=== PATIENT | female | born 1945 | race Caucasian/White ===

== ENCOUNTER 2018-12-19 11:07 | Inpatient (IN) | payer MEDICARE ==
--- NOTE | 2018-12-19 12:01 | ED ---
Fall HPI - General Chief Complaint: Fall Stated Complaint: Fall, leg pain Time Seen by Provider: 12/19/18 11:12 Source: patient Mode of arrival: wheelchair - History of Present Illness Initial Comments: 73-year-old female presenting today for chief complaint of left leg pain. Patient states that she fell when sitting on a chair reaching for an object on Friday of this week. She states she wasn't able to walk on the leg, she states she felt it was getting better. When she still wasn't able to walk today she presented for evaluation. Pt denies use of blood thinners, denies head neck or back injury. Patient states she does have pain in the leg when she attempts to walk she states it feels much. Otherwise remaining review of systems negative patient denies any other area of injury or pain. Patient appears well signs of acute distress. Pt is not able to weight bear on arrival. - Related Data Allergies Allergy/AdvReac Type Severity Reaction Status Date / Time No Known Allergies Allergy Verified 12/19/18 11:15 Review of Systems ROS Statement: Those systems with pertinent positive or pertinent negative responses have been documented in the HPI. ROS Other: All systems not noted in ROS Statement are negative. Past Medical History Past Medical History: Hypertension History of Any Multi-Drug Resistant Organisms: None Reported Past Surgical History: Appendectomy, Section Past Psychological History: No Psychological Hx Reported Smoking Status: Never smoker Past Alcohol Use History: None Reported Past Drug Use History: None Reported General Exam - General Exam Comments Initial Comments: General: The patient is awake and alert, in no distress, and does not appear acutely ill. Eye: +3 mm pupils are equal, round and reactive to light, extra-ocular m ovements are intact. No nystagmus. There is normal conjunctiva bilaterally. No signs of icterus. Ears, nose, mouth and throat: There are moist mucous membranes and no oral lesions. Neck: The neck is supple, there is no tenderness or JVD. Cardiovascular: There is a regular rate and rhythm. No murmur, rub or gallop is appreciated. Respiratory: Lungs are clear to auscultation, respirations are non-labored, breath sounds are equal. No wheezes, stridor, rales, or rhonchi. Gastrointestinal: Soft, non-distended, non-tender abdomen without masses or organomegaly noted. There is no rebound or guarding present. No CVA tenderness. Bowel sounds are unremarkable. Musculoskeletal: No midline or paravertebral tenderness of the cervical thoracic or lumbar spine Shortened external rotated left lower extremity. Bruising along the medial aspect of the left thigh. Unable to range her left hip. Full range motion at the right hip knee ankle. Patient is able to range at the left knee and ankle. Strength 5/5 below the knee and of the ankles b/l. Sensation intact of the LE bilaterally. DP pulses equal bilaterally 2+. Neurological: A&O x 3. CN II-XII intact, There are no obvious motor or sensory deficits. Coordination appears grossly intact. Speech is normal. Skin: Skin is warm and dry and no rashes or lesions are noted. Psychiatric: Cooperative, appropriate mood & affect, normal judgment. Limitations: no limitations Course Vital Signs 12/19/18 11:12 Temperature 97.5 F L Pulse Rate 98 Respiratory 16 Rate Blood Pressure 139/65 O2 Sat by Pulse 97 Oximetry Medical Decision Making - Medical Decision Making 73yo female with history of hypertension presenting today for chief complaint of left leg pain inability to weight bear. Patient fell Friday. Bruising and medial aspect of thigh external rotation shortening of the left lower extremity. Patient neurovascularly intact. Patient refuses pain medications. States she took ibuprofen prior to arrival. Patient denies any use of blood thinners. Imaging studies revealed a left intertrochanter fracture. There is comminution of the fracture. I contacted on-call physician therapeutic recreation assistant Bernardo Palafox, who recommended admission after reviewing images, pre-op clearance with medical consult, and NPO after midnight. Patient has ordered pain medication PRN. Patient refused any currently. I discussed case with attending provider Dr. Kilgore who is agreeable with care plan and admission.No further orders from admitting provider, findings discussed with patient who is agreeable with plan. Patient will have mathews placed as she is non-mobile/for comfort/pre-op. Disposition Clinical Impression: Intertrochanteric fracture of left hip, Left hip pain, Fall Disposition: ADMITTED IP TO THIS HOSP Condition: Stable Is patient prescribed a controlled substance at d/c from ED?: No Referrals: Erinn Bustos DO [Primary Care Provider] - 1-2 days Time of Disposition: 12:54 Decision to Admit Reason: Admit from EC Decision Date: 12/19/18 Decision Time: 13:00
--- NOTE | 2018-12-19 12:23 | XR ---
EXAMINATION TYPE: XR Hip LT and AP Pelvis , ONE VIEW DATE OF EXAM ORDERED: 12/19/2018 HISTORY: Pain. COMPARISON: None. FINDINGS: There is an intertrochanteric fracture of the left hip which is mildly foreshortened and c omminuted. There are degenerative changes in the lower lumbar spine. Osseous structures about the pel vis are unremarkable. There are degenerative changes in the right hip. IMPRESSION: INTERTROCHANTERIC FRACTURE OF THE LEFT HIP. CODE A: INITIAL ENCOUNTER FOR CLOSED FRACTURE.
--- NOTE | 2018-12-19 12:24 | XR ---
EXAMINATION TYPE: XR femur LT , 4 VIEWS DATE OF EXAM ORDERED: 12/19/2018 HISTORY: Pain. COMPARISON: None. FINDINGS: There is a comminuted, mildly foreshortened intertrochanteric fracture of the left hip. Th ere is osteoarthritis in the left knee. IMPRESSION: COMMINUTED, MILDLY FORESHORTENED INTERTROCHANTERIC FRACTURE OF THE LEFT HIP. CODE A: INITIAL ENCOUNTER FOR CLOSED FRACTURE.
--- NOTE | 2018-12-19 12:25 | XR ---
EXAMINATION TYPE: XR knee complete LT , 3 VIEWS DATE OF EXAM ORDERED: 12/19/2018 HISTORY: Pain. COMPARISON: None. FINDINGS: There is evidence of chondrocalcinosis. There are remodeling changes in the medial compart ment and to a lesser extent the patellofemoral joint. No fracture or dislocation is seen. No definite joint effusion is seen. IMPRESSION: OSTEOARTHRITIS.
--- NOTE | 2018-12-19 12:27 | XR ---
EXAMINATION TYPE: XR chest 1V DATE OF EXAM: 12/19/2018 HISTORY: Pain. REFERENCE: NONE. FINDINGS: There is apparent elevation of the right hemidiaphragm. The heart is upper limits of normal in size. There is mild vascular congestion without sal edema. No pleural fluid is seen. A density behind the left heart is suspicious for a hiatal hernia. IMPRESSION: 1. CARDIOMEGALY AND VASCULAR CONGESTION WITHOUT SAL EDEMA. 2. I AM SUSPICIOUS THAT THERE IS A HIATAL HERNIA.
[2018-12-19] MEDS ORDERED: MORPHINE SULFATE 4 MG/ML SYRINGE IV PRN (12:28)
[2018-12-19] MEDS ORDERED: NALOXONE 0.4 MG/ML 1 ML VIAL IV PRN (12:28)
[2018-12-19] MEDS: SODIUM CHLORIDE 0.9% 1,000 ML IV SCH ×2 (12:49→23:05)
[2018-12-19 12:59] LABS: Basophils % (A) 0 %; Eosinophils # (A) 0.1 k/uL (0-0.7); Eosinophils % (A) 1 %; HCT 33.7 % (34.0-46.0); HGB 11.2 gm/dL (11.4-16.0); Lymphocytes # (A) 1.4 k/uL (1.0-4.8); Lymphocytes % (A) 13 %; MCH 31.6 pg (25.0-35.0); MCHC 33.3 g/dL (31.0-37.0); Mean Platelet Volume 8.6; Monocytes # (A) 0.6 k/uL (0-1.0); Monocytes % (A) 5 %; Neutrophils # (A) 8.1 k/uL (1.3-7.7); Neutrophils % (A) 79 %; Platelet Count 299 k/uL (150-450); RBC 3.54 m/uL (3.80-5.40); RDW 14.3 % (11.5-15.5); WBC 10.3 k/uL (3.8-10.6)
[2018-12-19 13:07] LABS: INR 0.9 (<1.2)
[2018-12-19 13:09] LABS: Albumin 3.7 g/dL (3.5-5.0); Calcium 9.6 mg/dL (8.4-10.2); Total Bilirubin 1.1 mg/dL (0.2-1.3); Total Protein 6.6 g/dL (6.3-8.2)
[2018-12-19 13:10] LABS: Potassium 3.8 mmol/L (3.5-5.1)
--- NOTE | 2018-12-19 14:31 | P.HPOR ---
History of Present Illness H&P Date: 12/19/18 Chief Complaint: Left hip fracture Patient is a 73-year-old female who presented to [facility] today with regards to injury to her left leg. Patient had a fall this past Friday she was at home. She was up on a chair changing a light bulb on a fan when she fell directly onto that left side. Initially the pain was tolerable, she wasn't able to fully weight-bear, limp around. As the days went on the pain did worsen, and she was unable to weight-bear. She was brought to the hospital today by family members. Upon arrival to the hospital, images and labs were done. Images demonstrated a displaced left intertrochanteric femur fracture. I was contacted by the emergency room staff, I was able to discuss the case and review images. Patient was evaluated at bedside today in the emergency room, she has family with her. She is resting comfortably. She notes minimal discomfort in the left lower extremity at this time. She denies any previous orthopedic surgery involving the left lower extremity. She has no other orthopedic complaints time. She denies any chest pain, shortness of breath, fever or chills, abdominal discomfort. Review of Systems Constitutional: Reports as per HPI Past Medical History Past Medical History: Hypertension History of Any Multi-Drug Resistant Organisms: None Reported Past Surgical History: Appendectomy, Section Past Psychological History: No Psychological Hx Reported Smoking Status: Never smoker Past Alcohol Use History: None Reported Past Drug Use History: None Reported Medications and Allergies Home Medications Medication Instructions Recorded Confirmed Type Ascorbic Acid [Vitamin C] 1,000 mg PO DAILY 12/19/18 12/19/18 History Aspirin EC [Ecotrin] 325 mg PO DAILY 12/19/18 12/19/18 History Cholecalciferol [Vitamin D3 (25 1,000 unit PO DAILY 12/19/18 12/19/18 History Mcg = 1000 Iu)] Cyanocobalamin [Vitamin B-12] 500 mcg PO DAILY 12/19/18 12/19/18 History Lisinopril [Zestril] 20 mg PO DAILY 12/19/18 12/19/18 History Pyridoxine [Vitamin B-6] 50 mg PO DAILY 12/19/18 12/19/18 History Vitamin A 8,000 unit PO DAILY 12/19/18 12/19/18 History Vitamin E 100 unit PO DAILY 12/19/18 12/19/18 History Allergies Allergy/AdvReac Type Severity Reaction Status Date / Time No Known Allergies Allergy Verified 12/19/18 13:38 Physical Examination Left lower extremity: No obvious open lesions or sores present throughout the extremity Obvious ecchymosis and soft tissue swelling present over the medial, anterior and lateral aspect of the lower leg Soft, no tenderness with palpation Plantar flexion, dorsiflexion, EHL, FHL are intact She is unable to straight leg raise, logroll maneuver reproduces pain No tenderness with palpation surrounding the knee, foot or ankle Distal neurovascular exam is intact Results - Labs Labs: Abnormal Lab Results - Last 24 Hours (Table) 12/19/18 12/19/18 Range/Units 12:15 12:15 RBC 3.54 L (3.80-5.40) m/uL Hgb 11.2 L (11.4-16.0) gm/dL Hct 33.7 L (34.0-46.0) % Neutrophils # 8.1 H (1.3-7.7) k/uL Chloride 111 H (98-107) mmol/L Carbon Dioxide 21 L (22-30) mmol/L BUN 25 H (7-17) mg/dL Glucose 115 H (74-99) mg/dL AST 54 H (14-36) U/L Alkaline Phosphatase 31 L (38-126) U/L H & H 12/19/18 Range/Units 12:15 Hgb 11.2 L (11.4-16.0) gm/dL Hct 33.7 L (34.0-46.0) % Coagulation 12/19/18 Range/Units 12:15 INR 0.9 (<1.2) Result Diagrams: 12/19/18 12:15 12/19/18 12:15 - Diagnostic results Hip x-ray: report reviewed, image reviewed Assessment and Plan Plan: Imaging: X-rays were reviewed of the left hip. Images demonstrate a displaced left intertrochanteric femur fracture. Assessment: 1. Displaced left intertrochanteric femur fracture 2. Status post fall from chair Plan: I was able to review the images and discuss the case my attending Dr. Benoit. Patient will be admitted under our care with plan for surgical intervention. We would like to proceed with a intramedullary canal of the left femur on 12/20/2018. Risk and benefits of the procedure were discussed the patient and family at bedside today, there in good understanding and would like to proceed. Obtain consent Medical recommendations Urinary catheters been placed, remain on bed rest Pain control GI and DVT prophylaxis, will likely begin subcu medication after surgery Nothing by mouth after midnight Further recommendations to follow Time with Patient: Less than 30
[2018-12-19 16:47] VITALS: BMI 29.5
[2018-12-19] MEDS: ACETAMINOPHEN TAB 325 MG TAB PO PRN (20:33)
[2018-12-19] MEDS: ENOXAPARIN 40 MG/0.4 ML SYRINGE SQ SCH (20:59)
--- NOTE | 2018-12-20 00:50 | CONS ---
CONSULTATION DATE OF CONSULTATION: 12/19/2018. REASON FOR CONSULTATION: Medical management requested by Dr. Benoit. CONSULTATION: This is a pleasant 73 -year-old patient who follows with Dr. Erinn Bustos. She was sitting in an office chair. She leaned towards the left side to get a hold of the plug for put the fan. She fell down, was having some pain and started finding difficulty to walk and also started bruising on the left hip area. Finally decided to come in. X- ray in the ER confirmed the patient to have intertrochanteric fracture of the left hip. Patient does not have any cardiac or pulmonary history. In good health, very active otherwise. Is pretty healthy. Pain is localized to the hip. REVIEW OF SYSTEMS: CONSTITUTIONAL: None. HEENT: None. CARDIOVASCULAR: None. GASTROINTESTINAL: None. MUSCULOSKELETAL: As above. DERMATOLOGICAL, HEMATOLOGIC, LYMPHATICS: none. PSYCHIATRY none. NEUROLOGICAL none. PAST MEDICAL HISTORY: Past medical history of hypertension. PAST SURGICAL HISTORY: Appendectomy and . SOCIAL HISTORY: Does not smoke or drink alcohol. Lives by herself. Retired. FAMILY HISTORY: Diabetes. HOME MEDICATIONS: 1. Vitamin E 1000 units 100 units a day. 2. Vitamin B6 50 mg a day. 3. Vitamin B12 500 mcg a day. 4. Vitamin D3 1000 units a day. 5. Vitamin A 8000 units a day. 6. Vitamin C 1000 mg p.o. daily. 7. Zestril 20 mg a day. 8. Aspirin 325 p.o. daily. ALLERGIES: None. PHYSICAL EXAMINATION: VITAL SIGNS: Temperature 97.5, pulse 98, respiration 16, blood pressure 139/65, pulse ox 97% on room air. GENERAL APPEARANCE: Average build, lying in bed, comfortable. EYES: Pupils are equal. Conjunctivae normal. HEENT: External appearance of nose and ears normal. Oral cavity normal. NECK JVD not raised. Mass not palpable. RESPIRATORY: Effort normal. LUNGS fair air entry. CARDIOVASCULAR: First and second sounds normal. No edema. ABDOMEN: Soft, nontender, liver and spleen not palpable. LYMPHATICS: No lymph nodes palpable in the neck and axilla. PSYCHIATRY: Alert and oriented x3. Mood and affect normal. NEUROLOGICAL: Pupils equal. Cranial nerves grossly intact. Power and sensation grossly intact. MUSCULOSKELETAL: Limited range of motion of the left hip and evidence of osteoarthritis especially in the hands. INVESTIGATIONS: White count 10.3, hemoglobin 11.2, potassium 3.8, BUN 25, creatinine 0.90. EKG tracing personally reviewed by me shows nonspecific findings, otherwise sinus rhythm. Chest x- ray film personally reviewed by me shows some elevation of the right diaphragm. ASSESSMENT: 1. Left femur and left hip fracture secondary to fall. 2. Normocytic anemia, cause unknown. 3. Essential hypertension. 4. Primary osteoarthritis of the hands. PLAN: Patient is medically stable with good exercise tolerance. No cardiac or pulmonary symptoms, is a low cardiovascular risk for surgery. Care was discussed with the patient and she was okay to proceed for surgery. Care was discussed. The patient questions were answered. Lovenox for DVT prophylaxis. Thank you Dr. Benoit. Copy to Dr. Erinn Bustos. BASILIO / ELIOT: [id number] /
[2018-12-20] MEDS: ACETAMINOPHEN TAB 325 MG TAB PO PRN ×2 (03:36→12:22)
[2018-12-20] MEDS ORDERED: PROPOFOL 10 MG/ML 20 ML VIAL IV ONE (09:16)
[2018-12-20] MEDS ORDERED: PHENYLEPHRINE-0.9% NACL SYG 1 MG/10 ML SYRINGE ONE (09:16)
[2018-12-20] MEDS ORDERED: fentaNYL (PF) 50 MCG/ML 2 ML AMP ONE (09:16)
[2018-12-20] MEDS ORDERED: IV FLUID CONTINUATION 900 ML IV ONE (09:20)
[2018-12-20] MEDS ORDERED: SODIUM CHLORIDE 0.9% 100 ML with ceFAZolin 2,000 MG IV ONE ×2 (09:20)
[2018-12-20] MEDS: SODIUM CHLORIDE 0.9% 1,000 ML IV SCH ×2 (09:30→19:13)
[2018-12-20] MEDS ORDERED: ceFAZolin 1,000 MG in SODIUM CHLORIDE 0.9% 1,000 ML IRRIGATION ONE (09:45)
--- NOTE | 2018-12-20 10:26 | FL ---
FLUOROSCOPY 1 minute and 34 seconds of fluoroscopy time were utilized during internal fixation of the left hip. 2 images document the procedure.
--- NOTE | 2018-12-20 10:35 | P.OP ---
Date of Procedure: 12/20/18 Preoperative Diagnosis: Displaced comminuted left hip intertrochanteric fracture Postoperative Diagnosis: Same Procedure(s) Performed: Trochanteric nailing left hip Implants: Synthes 10 mm/130 degree angle trochanteric nail 170 mm in length with a 11 mm x 100 mm helical blade and one 5.0 36 mm distal locking screw Anesthesia: ARIAS Surgeon: Jarad Benoit Watch Assembly Inspector #1: Walter Palafox Estimated Blood Loss (ml): 20 Pathology: none sent Condition: stable Disposition: PACU Indications for Procedure: 73-year-old patient seen with a left hip intertrochanteric fracture. I recommended trochanteric nailing. The procedure, risks, complications and recovery were discussed with patient. She was agreeable and consent was obtained. Operative Findings: See description of procedure Description of Procedure: The patient was taken to the operative suite. Patient underwent a general anesthetic by the department of anesthesia. Patient received preoperative IV antibiotics. Patient was transferred to the fracture table. Left lower extremity is placed in Hawkins traction with internal rotation and adduction. The right lower extremity placed in well-padded well-leg simmons. C-arm was brought into confirm adequate alignment of this comminuted fracture. The left hip was now prepped and draped in the normal sterile orthopedic fashion. I now made an incision just proximal to the greater trochanter sharply through skin. Dissection taken down to the iliotibial band. A loss incision was made there. A guidewire was inserted into the greater trochanteric tip. Entering into the intramedullary canal. We confirmed this under AP and lateral intraoperative imaging. We now introduced our trochanteric nail. It was tapped down to the level of where we needed to be for insertion of the guidewire into the head neck complex. We now made a separate incision along the outrigger introduced a guidepin to the head neck complex. We confirmed good positioning of this under AP and lateral intraoperative imaging. We then depth that guidewire and reamed over the guidewire. We now introduced our appropriate size length helical blade with good fixation noted. The set screw was now set into static mode given this comminuted unstable fracture. We then made an incision distally for distal locking screw. Our outrigger guide was positioned and drill hole was made and appropriate length is selected was inserted. The outrigger was now removed. The entire construct was reviewed under AP and lateral intraoperative imaging. We had adequate alignment of the fracture and good position of internal fixation. The C-arm was pulled back. All wounds were irrigated with sterile solution. The IT band was repaired with #1 Vicryl. The subcu soft tissues all 3 incisions were repaired 2-0 Vicryl. All skin incisions were approximated with skin abhijit. Sterile dressings were applied. The patient was awakened and transferred to a bed and recovery stable condition. Bernardo CASTELLANOS assisted with this procedure.
[2018-12-20] MEDS: HYDROmorphone 1 MG/ML 1 ML SYRINGE IVP ONE ×2 (10:41→10:47)
[2018-12-20] MEDS ORDERED: MAGNESIUM HYDROXIDE 2,400 MG/10 ML CUP PO PRN (10:49)
[2018-12-20] MEDS ORDERED: ONDANSETRON 4 MG/2 ML VIAL IVP PRN (10:49)
[2018-12-20] MEDS ORDERED: ONDANSETRON 4 MG/2 ML VIAL IVP ONE (10:50)
[2018-12-20] MEDS ORDERED: diphenhydrAMINE 50 MG/ML 1 ML VIAL IVP ONE (10:59)
[2018-12-20] MEDS: ENOXAPARIN 40 MG/0.4 ML SYRINGE SQ SCH ×2 (12:17→20:14)
[2018-12-20] MEDS: LISINOPRIL 20 MG TAB PO SCH (12:22)
[2018-12-20] MEDS: HYDROmorphone 0.5 MG/0.5 ML SYRINGE IVP PRN ×3 (14:50→22:51)
[2018-12-20] MEDS: ceFAZolin IN SWFI 2 GM/20 ML SYRINGE IVP SCH (15:44)
[2018-12-20] MEDS: HYDROcodone/APAP 5-325MG 1 EACH TAB PO PRN (20:12)
[2018-12-20] MEDS: SENNOSIDES-DOCUSATE SODIUM 1 EACH TAB PO SCH (20:14)
[2018-12-21] MEDS: ceFAZolin IN SWFI 2 GM/20 ML SYRINGE IVP SCH (00:28)
[2018-12-21] MEDS: HYDROmorphone 0.5 MG/0.5 ML SYRINGE IVP PRN ×2 (03:21→09:42)
[2018-12-21] MEDS: SODIUM CHLORIDE 0.9% 1,000 ML IV SCH ×3 (04:23→23:11)
[2018-12-21] MEDS: HYDROcodone/APAP 5-325MG 1 EACH TAB PO PRN ×3 (06:50→17:39)
[2018-12-21] MEDS: LISINOPRIL 20 MG TAB PO SCH (06:51)
--- NOTE | 2018-12-21 06:58 | PN ---
PROGRESS NOTE DATE OF SERVICE: 12/20/2018 PRESENTING COMPLAINT: Left femur surgery. INTERVAL HISTORY: Patient was seen by me on 12/20/2018, status post hip surgery. Had a left hip nailing done. Some pain is present. Lying in bed. No nausea, vomiting. No chest pain. Family at the bedside. REVIEW OF SYSTEMS: Done for constitutional, cardiovascular, GI, pulmonary; relevant findings as above. CURRENT MEDICATIONS: Current medications are reviewed that include Lovenox. PHYSICAL EXAMINATION: On examination, temperature 98.6, pulse 91, respirations 16, blood pressure 167/80, pulse ox 100% on 2 L. GENERAL APPEARANCE: Lying in bed, tired appearing. EYES: Pupils equal. Conjunctivae pale. NECK: JVD not raised. Mass not palpable. RESPIRATORY: Effort normal. LUNGS: Fair entry. CARDIOVASCULAR: First and second sounds normal. No edema. ABDOMEN: Soft, nontender. Liver and spleen not palpable. PSYCHIATRY: Alert and oriented x3. Mood and affect normal. Left hip has got medial bruising, present on admission. INVESTIGATIONS: No blood work from today. ASSESSMENT: 1. Left femur and left fracture followed by nailing. 2. Normocytic anemia cause unknown. 3. Essential hypertension. 4. Primary osteoarthritis of the hands. PLAN: Continue current medication and treatment plan. Care was discussed with the patient. Will follow. MMODL / IJN: [id number] /
[2018-12-21 09:06] LABS: Basophils % (A) 0 %; Eosinophils # (A) 0.1 k/uL (0-0.7); Eosinophils % (A) 1 %; HCT 28.1 % (34.0-46.0); Lymphocytes # (A) 0.8 k/uL (1.0-4.8); Lymphocytes % (A) 12 %; MCH 31.9 pg (25.0-35.0); MCV 96.8 fL (80.0-100.0); Mean Platelet Volume 8.3; Monocytes # (A) 0.4 k/uL (0-1.0); Monocytes % (A) 6 %; Neutrophils # (A) 5.4 k/uL (1.3-7.7); Neutrophils % (A) 81 %; Platelet Count 229 k/uL (150-450); RDW 13.9 % (11.5-15.5); WBC 6.7 k/uL (3.8-10.6)
[2018-12-21 09:10] LABS: HGB 9.3 gm/dL (11.4-16.0)
--- NOTE | 2018-12-21 12:47 | P.PN ---
Subjective Progress Note Date: 12/21/18 Principal diagnosis: Status post intramedullary nail left intertrochanteric femur fracture Patient evaluated at bedside today, she is resting comfortably. She does note some increasing pain in the left hip. I did up the oral medication today. She has not been out of bed yet, urinary catheter still in place. She denies any headaches, lightheadedness, chest pain or shortness of breath. Objective - Vital Signs Vital signs: Vital Signs Temp 98.8 F 12/21/18 08:02 Pulse 87 12/21/18 08:02 Resp 14 12/21/18 00:38 BP 148/80 12/21/18 08:02 Pulse Ox 93 L 12/21/18 08:02 Intake & Output 12/20/18 12/21/18 12/21/18 18:59 06:59 18:59 Intake Total 1301.5 Output Total 370 700 Balance 931.5 -700 Intake: IV 701.5 Intake, IV Titration 600 Amount Sodium Chloride 0.9% 1, 600 000 ml @ 100 mls/hr IV . Q10H LEIDA Rx#:[id number] Output: Urine 350 700 Estimated Blood Loss 20 Other: Voiding Method Indwelling Catheter Indwelling Catheter Indwelling Catheter # Bowel Movements 1 - Exam Left lower extremity: Incision is clean, dry, and intact. The abhijit is in good condition. There is minimal soft tissue swelling and ecchymosis surrounding the medial and lateral aspects of the incision. Calf is soft, no tenderness with palpation. Plantar flexion, dorsiflexion, EHL, FHL are intact. Sensory exam to light touch throughout the extremity is intact, dorsal pedis pulses 2+. - Labs CBC & Chem 7: 12/21/18 07:11 12/19/18 12:15 Labs: Abnormal Lab Results - Last 24 Hours (Table) 12/21/18 Range/Units 07:11 RBC 2.90 L (3.80-5.40) m/uL Hgb 9.3 L D (11.4-16.0) gm/dL Hct 28.1 L (34.0-46.0) % Lymphocytes # 0.8 L (1.0-4.8) k/uL Assessment and Plan Plan: Assessment: Postoperative day #1 status post IM nail left intertrochanteric femur fracture Plan: Pain control, continue oral medication as needed, IV pain medication for signifi cant pain GI and DVT prophylaxis, continue current medication Toe-touch weightbearing left lower extremity, physical therapy evaluation Encourage incentive spirometer Daily dressing changes/ice the left leg Medical recommendations Discharge planning: Anticipate discharge to rehab in the next few days Time with Patient: Less than 30
[2018-12-21] MEDS: traMADol 50 MG TAB PO SCH ×3 (14:01→22:04)
[2018-12-21] MEDS: SENNOSIDES-DOCUSATE SODIUM 1 EACH TAB PO SCH (22:05)
[2018-12-21] MEDS: ENOXAPARIN 40 MG/0.4 ML SYRINGE SQ SCH (22:05)
[2018-12-22] MEDS: HYDROcodone/APAP 5-325MG 1 EACH TAB PO PRN ×3 (01:27→16:53)
--- NOTE | 2018-12-22 06:50 | PN ---
PROGRESS NOTE DATE OF SERVICE: 12/21/2018 PRESENTING COMPLAINT: Left femur surgery. INTERVAL HISTORY: Patient was seen by me yesterday. Status post hip surgery, doing well. Some pain with activity. Otherwise doing well with therapy. No new issues, stable. No dizziness. No lightheadedness. REVIEW OF SYSTEMS: Done for constitutional, cardiovascular, GI, pulmonary; relevant findings as above. CURRENT MEDICATIONS: Current medications are reviewed. PHYSICAL EXAMINATION: On examination, temperature 98.8, pulse 87, respiration 16, blood pressure 148/80, pulse ox 93% on room air. GENERAL APPEARANCE: Lying in bed, comfortable. EYES: Pupils equal. Conjunctivae pale. NECK: JVD not raised. Mass not palpable. RESPIRATORY: Effort normal. LUNGS: Fair entry. CARDIOVASCULAR: First and second sounds normal. No edema. ABDOMEN: Soft, nontender. Liver and spleen not palpable. PSYCHIATRY: Alert and oriented x3. Mood and affect normal. INVESTIGATIONS: White count 6.7, hemoglobin 9.3. ASSESSMENT: 1. Left femur fracture followed by nailing. 2. Normocytic anemia cause undetermined. 3. Essential hypertension. 4. Primary osteoarthritis of the hands. PLAN: Stable. Continue current medication and treatment plan. Thank you. MMODL / IJN: [id number] /
[2018-12-22] MEDS: traMADol 50 MG TAB PO SCH ×4 (08:17→21:15)
[2018-12-22] MEDS: LISINOPRIL 20 MG TAB PO SCH (08:17)
[2018-12-22] MEDS: SODIUM CHLORIDE 0.9% 1,000 ML IV SCH ×2 (09:56→19:57)
[2018-12-22 10:32] LABS: Basophils % (A) 0 %; Eosinophils # (A) 0.1 k/uL (0-0.7); Eosinophils % (A) 2 %; HCT 26.6 % (34.0-46.0); HGB 8.8 gm/dL (11.4-16.0); Lymphocytes # (A) 0.9 k/uL (1.0-4.8); Lymphocytes % (A) 13 %; MCH 31.7 pg (25.0-35.0); MCHC 33.2 g/dL (31.0-37.0); MCV 95.3 fL (80.0-100.0); Monocytes # (A) 0.3 k/uL (0-1.0); Monocytes % (A) 5 %; Neutrophils # (A) 5.6 k/uL (1.3-7.7); Neutrophils % (A) 79 %; Platelet Count 234 k/uL (150-450); RBC 2.79 m/uL (3.80-5.40); RDW 13.7 % (11.5-15.5); WBC 7.1 k/uL (3.8-10.6)
[2018-12-22 10:33] LABS: African American GFR (CKD) >90 (>60 ml/min/1.73 sqM); Anion Gap 4 mmol/L; Blood Urea Nitrogen 9 mg/dL (7-17); Calcium 8.3 mg/dL (8.4-10.2); Carbon Dioxide 30 mmol/L (22-30); Chloride 105 mmol/L (98-107); Glucose 121 mg/dL (74-99); Sodium 139 mmol/L (137-145)
--- NOTE | 2018-12-22 11:06 | P.PN ---
Subjective Progress Note Date: 12/22/18 Principal diagnosis: Status post intramedullary nail left intertrochanteric femur fracture Patient evaluated at bedside today, she is resting comfortably. She does admit improvement in pain. She denies any headaches, lightheadedness, chest pain or shortness of breath. Objective - Vital Signs Vital signs: Vital Signs Temp 99.0 F 12/22/18 06:47 Pulse 91 12/22/18 06:47 Resp 18 12/22/18 06:47 BP 157/77 12/22/18 06:47 Pulse Ox 96 12/22/18 06:47 Intake & Output 12/21/18 12/22/18 12/22/18 18:59 06:59 18:59 Output Total 700 Balance -700 Output: Urine 700 Other: Voiding Method Indwelling Catheter # Voids 3 1 2 # Bowel Movements 0 - Exam Left lower extremity: Incision is clean, dry, and intact. The abhijit is in good condition. There is minimal soft tissue swelling and ecchymosis surrounding the medial and lateral aspects of the incision. Calf is soft, no tenderness with palpation. Plantar flexion, dorsiflexion, EHL, FHL are intact. Sensory exam to light touch throughout the extremity is intact, dorsal pedis pulses 2+. - Labs CBC & Chem 7: 12/22/18 09:21 12/22/18 09:21 Labs: Abnormal Lab Results - Last 24 Hours (Table) 12/22/18 12/22/18 Range/Units 09:21 09:21 RBC 2.79 L (3.80-5.40) m/uL Hgb 8.8 L (11.4-16.0) gm/dL Hct 26.6 L (34.0-46.0) % Lymphocytes # 0.9 L (1.0-4.8) k/uL Potassium 3.0 L (3.5-5.1) mmol/L Creatinine 0.50 L (0.52-1.04) mg/dL Glucose 121 H (74-99) mg/dL Calcium 8.3 L (8.4-10.2) mg/dL Assessment and Plan Plan: Assessment: Postoperative day #2 status post IM nail left intertrochanteric femur fracture Plan: Pain control, continue oral medication as needed, IV pain medication for significant pain GI and DVT prophylaxis, continue current medication Toe-touch weightbearing left lower extremity, physical therapy evaluation Encourage incentive spirometer Daily dressing changes/ice the left leg Medical recommendations Discharge planning: Anticipate discharge to rehab tomorrow Time with Patient: Less than 30
[2018-12-22 19:51] VITALS: RESP 18
[2018-12-22] MEDS: SENNOSIDES-DOCUSATE SODIUM 1 EACH TAB PO SCH (19:58)
[2018-12-22] MEDS: ENOXAPARIN 40 MG/0.4 ML SYRINGE SQ SCH (19:58)
[2018-12-22] MEDS ORDERED: POTASSIUM CHLORIDE ER 20 MEQ TAB.ER PO STA (22:59)
[2018-12-23] MEDS: HYDROcodone/APAP 5-325MG 1 EACH TAB PO PRN ×3 (04:57→16:50)
[2018-12-23] MEDS: SODIUM CHLORIDE 0.9% 1,000 ML IV SCH ×2 (06:29→15:57)
--- NOTE | 2018-12-23 06:41 | PN ---
PROGRESS NOTE DATE OF SERVICE: 12/22/2018 PRESENTING COMPLAINT: Left femur surgery. INTERVAL HISTORY: Patient was seen by me this morning. Doing better. Pain is controlled. Tolerating a diet. No new issues. Comfortable. REVIEW OF SYSTEMS: Done for constitutional, cardiovascular, GI, pulmonary, relevant findings as above. CURRENT MEDICATIONS: Reviewed. PHYSICAL EXAMINATION: VITAL SIGNS: Temperature 99, pulse 91, respiratory 18, blood pressure 157/77, pulse ox 96% on room air. GENERAL APPEARANCE: Lying in bed, comfortable. EYES: Pupils equal. Conjunctivae normal. NECK: JVD not raised. Mass not palpable. RESPIRATORY: Effort normal. LUNGS: Fair air entry. CARDIOVASCULAR: First and second sounds normal. No edema. ABDOMEN: Soft, nontender. Liver and spleen not palpable. PSYCHIATRY: Alert and oriented x3. Mood and affect normal. INVESTIGATIONS: White count 7.1, hemoglobin 8.8, potassium 3, BUN 9, creatinine 0.50. ASSESSMENT: 1. Left femur fracture followed by nailing. 2. Normocytic anemia cause undetermined. 3. Essential hypertension. 4. Primary osteoarthritis of the hands. 5. Acute postoperative blood loss anemia expected from surgery. 6. Hypokalemia. PLAN: Patient is medically stable. Continue current medication and treatment plan. Looking for patient to go to rehab. Will give one dose of potassium. MMODL / IJN: [id number] /
[2018-12-23] MEDS: traMADol 50 MG TAB PO SCH ×2 (07:55→15:57)
[2018-12-23] MEDS: LISINOPRIL 20 MG TAB PO SCH (07:56)
[2018-12-23 08:22] LABS: African American GFR (CKD) >90 (>60 ml/min/1.73 sqM); Anion Gap 3 mmol/L; Blood Urea Nitrogen 10 mg/dL (7-17); Calcium 8.5 mg/dL (8.4-10.2); Carbon Dioxide 31 mmol/L (22-30); Chloride 106 mmol/L (98-107); Glucose 103 mg/dL (74-99); Potassium 3.3 mmol/L (3.5-5.1); Sodium 140 mmol/L (137-145)
--- NOTE | 2018-12-23 11:37 | P.PN ---
Subjective Progress Note Date: 12/23/18 Principal diagnosis: Status post intramedullary nail left intertrochanteric femur fracture Patient evaluated at bedside today, she is resting comfortably. She does admit improvement in pain. She denies any headaches, lightheadedness, chest pain or shortness of breath. Objective - Vital Signs Vital signs: Vital Signs Temp 98.5 F 12/23/18 07:10 Pulse 93 12/23/18 07:10 Resp 18 12/23/18 01:14 BP 143/80 12/23/18 07:10 Pulse Ox 94 L 12/23/18 07:10 Intake & Output 12/22/18 12/23/18 12/23/18 18:59 06:59 18:59 Intake Total 250 100 Output Total 700 200 Balance -700 250 -100 Intake: Oral 250 100 Output: Urine 700 200 Other: Voiding Method Bedpan # Voids 1 1 # Bowel Movements 0 1 - Exam Left lower extremity: Incision is clean, dry, and intact. The abhijit is in good condition. There is minimal soft tissue swelling and ecchymosis surrounding the medial and lateral aspects of the incision. Calf is soft, no tenderness with palpation. Plantar flexion, dorsiflexion, EHL, FHL are intact. Sensory exam to light touch throughout the extremity is intact, dorsal pedis pulses 2+. - Labs CBC & Chem 7: 12/22/18 09:21 12/23/18 07:14 Labs: Abnormal Lab Results - Last 24 Hours (Table) 12/23/18 Range/Units 07:14 Potassium 3.3 L (3.5-5.1) mmol/L Carbon Dioxide 31 H (22-30) mmol/L Creatinine 0.50 L (0.52-1.04) mg/dL Glucose 103 H (74-99) mg/dL Assessment and Plan Plan: Assessment: Postoperative day #3 status post IM nail left intertrochanteric femur fracture Plan: Pain control, [place] 5 mg/325 mg, tramadol 50 mg GI and DVT prophylaxis, heparin 5000 units every 12 Toe-touch weightbearing left lower extremity, physical therapy evaluation Encourage incentive spirometer Daily dressing changes/ice the left leg Medical recommendations Discharge planning: Discharged to rehab today Time with Patient: Less than 30
--- NOTE | 2018-12-23 11:44 | P.DS ---
Providers Date of admission: 12/19/18 12:32 Expected date of discharge: 12/23/18 Attending physician: Jarad Benoit Consults: 12/19/18 12:28 Consult Physician Urgent Consulting Provider: Juvenal Briggs Consult Reason/Comments: medical clearance IT fracture Do you want consulting provider notified?: Yes Primary care physician: Erinn Bustos Hospital Course: Date of admission: 12/19/2018 Date of discharge: 12/23/2018 Admission diagnosis: Displaced left intertrochanteric femur fracture Discharge diagnosis: Status post intramedullary nailing left intertrochanteric femur fracture Attending physician: Dr. Benoit Surgical procedures: Intramedullary nailing left intertrochanteric femur fracture Brief history: Patient is a 73-year-old female who presented to [facility] on 12/19/2018 after sustaining a fall a few days prior to injuring her left leg. It was determined she had a displaced left intertrochanteric femur fracture. Patient was admitted under orthopedic care with plan for surgical intervention. Internal medicine was consult for medical management. Hospital course: Details of patient's surgery can be found in operative report. Patient tolerated the procedure well and was subsequently transported to orthopedic floor. Patient's orthopeidc and medical care was provided daily. Patient had daily laboratory tests performed for evaluation of overall blood counts. Patient had daily physical therapy to include strengthening range of motion as well as education with walker ambulation. Patient was treated with Lovenox for their postoperative DVT prophylaxis during their inpatient stay. Patient was noted to have a relatively uneventful postoperative course. Patient reported satisfactory pain control with oral pain medications by postoperative day 0. Patient showed satisfactory progress with physical therapy. Patient moved steadily through the program and had no difficulty meeting the goals by postoperative day 3. Given patient's otherwise satisfactory course and having met physical therapy goals, plan is to discharge patient rehab on postoperative day 3. Discharge condition/disposition: Patient will be discharged to rehab in stable condition. Discharge medications: Instructions are given on resumption of patient's normal daily medications per primary care recommendation, in addition patient will be prescribed [place] 5 mg/325 mg, tramadol 50 mg, Colace 100 mg, aspirin 81 mg, ferrous sulfate 325 mg. Discharge instructions: 1. Wound care and infection precautions, keep incision dry and covered while showering, no lotions, creams, moisturizers. No soaking, tubs, pools, hottubs. Do not scrub over the incision. 2. Toe-touch weightbearing left lower extremity 3. Ice and elevate when necessary. Do not exceed 20 minutes per hour with ice pack. 4. Utilize compression sleeve until seen at first follow up appointment. 5. Pain meds and anticoagulants per prescription. 6. Pain medication has potential to cause constipation. Increase oral fluid and fiber intake. Contact primary care provider if you have not had a bowel movement within 48 hours after discharge 7. Follow up in office at 2 weeks postop with Bernardo Palafox PA-C 8. Follow up with your primary care doctor 7-10 days after discharge. 9. Contact [facility] with any questions, . Procedures: Intramedullary nailing left intertrochanteric femur fracture Patient Condition at Discharge: Stable Plan - Discharge Summary Discharge Rx Participant: Yes New Discharge Prescriptions: New Docusate [Colace] 100 mg PO DAILY #30 capsule Ferrous Sulfate [Feosol] 325 mg PO BID #60 tab Hydrocodone/Acetaminophen [[place] 5-325] 1 - 2 each PO Q6HR PRN #56 tab PRN Reason: Pain traMADol HCl [Ultram] 50 mg PO Q6H PRN #28 tab PRN Reason: Pain Rivaroxaban [Xarelto] 10 mg PO DAILY #28 tab No Action Vitamin E 100 unit PO DAILY Pyridoxine [Vitamin B-6] 50 mg PO DAILY Cyanocobalamin [Vitamin B-12] 500 mcg PO DAILY Cholecalciferol [Vitamin D3 (25 Mcg = 1000 Iu)] 1,000 unit PO DAILY Vitamin A 8,000 unit PO DAILY Ascorbic Acid [Vitamin C] 1,000 mg PO DAILY Lisinopril [Zestril] 20 mg PO DAILY Aspirin EC [Ecotrin] 325 mg PO DAILY Discharge Medication List Ascorbic Acid [Vitamin C] 1,000 mg PO DAILY 12/19/18 [History] Aspirin EC [Ecotrin] 325 mg PO DAILY 12/19/18 [History] Cholecalciferol [Vitamin D3 (25 Mcg = 1000 Iu)] 1,000 unit PO DAILY 12/19/18 [History] Cyanocobalamin [Vitamin B-12] 500 mcg PO DAILY 12/19/18 [History] Lisinopril [Zestril] 20 mg PO DAILY 12/19/18 [History] Pyridoxine [Vitamin B-6] 50 mg PO DAILY 12/19/18 [History] Vitamin A 8,000 unit PO DAILY 12/19/18 [History] Vitamin E 100 unit PO DAILY 12/19/18 [History] Docusate [Colace] 100 mg PO DAILY #30 capsule 12/23/18 [Rx] Ferrous Sulfate [Feosol] 325 mg PO BID #60 tab 12/23/18 [Rx] Hydrocodone/Acetaminophen [[place] 5-325] 1 - 2 each PO Q6HR PRN #56 tab 12/23/18 [Rx] Rivaroxaban [Xarelto] 10 mg PO DAILY #28 tab 12/23/18 [Rx] traMADol HCl [Ultram] 50 mg PO Q6H PRN #28 tab 12/23/18 [Rx] Follow up Appointment(s)/Referral(s): Jonathan Mendez [NON-STAFF] - 1-2 Days Jarad Benoit DO [Doctor of Osteopathic Medicine] - 01/06/19 9:50 am Erinn Bustos DO [Primary Care Provider] - 1-2 days (Office closed Wednesdays please call tomorrow () to make your 1-week hospital follow-up) Activity/Diet/Wound Care/Special Instructions: Orthopedic Discharge Instructions: 1. Wound care and infection precautions, keep incision dry and covered while showering, no lotions, creams, moisturizers. No soaking, pools, hot tubs. Do not scrub over incision. 2. Toe-touch weightbearing left lower extremity 3. Ice and elevate when necessary. Do not exceed 20 minutes per hour with ice pack. 4. Utilize compression sleeve until seen at first follow up appointment. 5. Pain meds and anticoagulants per prescription. 6. Pain medication has potential to cause constipation. Increase oral fluid and fiber intake. Contact primary care provider if you have not had a bowel movement within 48 hours after discharge. 7. No anti-inflammatory medication until discussed at first post operative visit, this including Motrin, Aleve, Mobic, Diclofenac. 8. Follow up in office at 2 weeks postop with Bernardo Palafox PA-C 9. Follow up with your primary care doctor 7-10 days after discharge. 10. Contact [facility] with any questions, . Discharge Disposition: TRANSFER TO SNF/ECF
[2018-12-23 14:19] VITALS: BP 128/73; PULSE 90; TEMP 98.6
--- NOTE | 2018-12-24 12:04 | PN ---
PROGRESS NOTE DATE OF SERVICE: 12/23/2018 PRESENTING COMPLAINT: Left femur surgery. INTERVAL HISTORY: Patient was seen by me yesterday. Doing well. Keen to go to rehab. Pain is controlled. Tolerating a diet. No chest pain or shortness of breath. REVIEW OF SYSTEMS: Done for constitutional, cardiovascular, GI, pulmonary, musculoskeletal; relevant findings as above. CURRENT MEDICATIONS: Current medications are reviewed. PHYSICAL EXAMINATION: On examination, temperature 98.5, pulse, respiration 16, blood pressure 143/80, pulse ox 94% on room air. GENERAL APPEARANCE: Propped up in bed, comfortable. EYES: Pupils equal. Conjunctivae normal. NECK: JVD not raised. Mass not palpable. RESPIRATORY: Effort normal. LUNGS: Are clear. CARDIOVASCULAR: First and second sounds normal. No edema. ABDOMEN: Soft, nontender. Liver and spleen not palpable. PSYCHIATRY: Alert and oriented x3. Mood and affect normal. INVESTIGATIONS: BUN 10, creatinine 0.5. ASSESSMENT: 1. Left femur fracture followed by nailing. 2. Normocytic anemia cause undetermined. 3. Essential hypertension. 4. Primary osteoarthritis of the hands. 5. Acute postoperative blood loss anemia expected from surgery. PLAN: The patient is stable to go back to rehab. Care was discussed with the patient. MMODL / IJN: [id number] /
== END 2018-12-23 17:13 | DRG 481 ==
LOC: EC 11:07 → 4SSUR 12:32
PROVIDERS: ADMIT Orthopaedic Surgery; ATTEND Orthopaedic Surgery
PROC: 0QH706Z Insertion of Intramedullary Internal Fixation Device into Left Upper Femur, Open Approach (ICD-10-PCS; principal; 2018-12-20 09:30)
DX: S72.142A Displaced intertrochanteric fracture of left femur, initial encounter for closed fracture (principal); D62 Acute posthemorrhagic anemia; W07.XXXA Fall from chair, initial encounter; E87.6 Hypokalemia; I10 Essential (primary) hypertension; M19.041 Primary osteoarthritis, right hand; M19.042 Primary osteoarthritis, left hand; Z79.82 Long term (current) use of aspirin; Z79.899 Other long term (current) drug therapy; Z83.3 Family history of diabetes mellitus; Z60.2 Problems related to living alone
CPT/HCPCS: 36415; 71045; 73501; 73502; 80048; 80053; 85025; 85610; 85730; 86850; 86900; 86901; 93005; 99284